=== PATIENT | male | born 1980 | race African-American/Black ===

== ENCOUNTER 2018-10-26 10:43 | Emergency (ER) | payer MEDICAID ==
[~2018-10-26] VITALS: Ht 180.3 cm; Wt 100.6 kg
[2018-10-26 12:53] VITALS: BP 169/100
== END 2018-10-26 12:55 | disposition home or self-care (01) ==
LOC: ED 11:42
DX: R60.0 Localized edema (principal); I10 Essential (primary) hypertension; Z72.9 Problem related to lifestyle, unspecified; F15.20 Other stimulant dependence, uncomplicated
CPT/HCPCS: 36415; 71045; 80053; 83880; 85025; 93005; 93970; 99284

== ENCOUNTER 2020-03-11 08:08 | Emergency (ER) | payer MEDICAID ==
[~2020-03-11] VITALS: Ht 180.3 cm; Wt 77.3 kg
[~2020-03-11 08:08] MED LIST: LISI1TAB23 PO
[2020-03-11] MEDS ORDERED: MORPHINE SULFATE 4 MG/ML, 1ML IVPush PRN (09:00)
[2020-03-11] MEDS ORDERED: ONDANSETRON 2MG/ML, 2ML IVPush ONE (09:00)
[2020-03-11] MEDS ORDERED: SODIUM CHLORIDE FLUSH 10ML SYR IVF ONE (09:00)
[2020-03-11 09:06] LABS: BASOPHILS % (AUTO) 0 % (0-1); EOSINOPHILS % (AUTO) 0 % (1-7); LYMPHOCYTES % (AUTO) 3 % (22-44); MEAN CORPUSCULAR HEMOGLOBIN 31.2 pg (27.5-34.5); MEAN CORPUSCULAR HGB CONC 33.8 g/dL (33.2-36.2); MONOCYTES % (AUTO) 9 % (2-9); NEUTROPHILS % (AUTO) 88 % (42-75); PLATELET COUNT 326 x10^3/uL (130-400); RED BLOOD COUNT 4.82 x10^6/uL (4.38-5.82); RED CELL DISTRIBUTION WIDTH 12.5 % (9.4-14.8)
--- NOTE | 2020-03-11 09:06 | NUR ---
PIV PLACED FOR CT. PT HAS CO BUMP UNDER MANDIBLE. NO REDNESS SKIN IRRITATION.
[2020-03-11 09:18] LABS: ALBUMIN 3.9 g/dL (3.4-5.0); ANION GAP 3 mmol/L (5-15); CALCIUM 10.2 mg/dL (8.5-10.1); CHLORIDE 104 mmol/L (98-107); CREATININE 1.01 mg/dL (0.7-1.3)
[2020-03-11 09:54] LABS: MD SCAN
[2020-03-11] MEDS ORDERED: OMNIPAQUE 350 MG/ML, 100ML BOTTLE ONE (10:28)
[2020-03-11] MEDS ORDERED: CEFAZOLIN PMX 1GM/50ML 50 ML IV ONE (11:00)
[2020-03-11] MEDS ORDERED: AMPICILLIN/SULBACTAM 3 GM in SODIUM CHLORIDE 0.9% 100 ML IV ONE (11:00)
[2020-03-11] MEDS ORDERED: MORPHINE SULFATE 4 MG/ML, 1ML ONE (11:21)
[2020-03-11] MEDS ORDERED: LIDOCAINE-MPF 1%, 5ML ONE (11:26)
[2020-03-11] MEDS ORDERED: LIDOCAINE 2%, 20ML SQ ONE (11:30)
--- NOTE | 2020-03-11 11:57 | NUR ---
IV INFILTRATED. ABX DID NOT INFUSE
[2020-03-11] MEDS ORDERED: CEFTRIAXONE 1,000 MG IM ONE ×2 (12:00)
[2020-03-11] MEDS ORDERED: CEFTRIAXONE 1,000 MG ONE (12:00)
--- NOTE | 2020-03-11 12:15 | NUR ---
Patient/Caregiver given discharge instructions and they have confirmed that they understand the instructions. Patient ambulatory with steady gait.
[2020-03-11 12:17] VITALS: BP 126/79
== END 2020-03-11 12:18 | disposition home or self-care (01) ==
LOC: ED 09:16
DX: L02.01 Cutaneous abscess of face (principal); D72.829 Elevated white blood cell count, unspecified; F17.290 Nicotine dependence, other tobacco product, uncomplicated
CPT/HCPCS: 10060; 36415; 70491; 80048; 82040; 83605; 84145; 85025; 87040; 96365; 96372; 96375; 99285; J0295; J0696; J2270; Q9967